=== PATIENT | female | born 1960 | race Caucasian/White ===

== ENCOUNTER 2018-04-21 15:10 | Day surgery (SDC) | payer OTHER ==
[~2018-04-21] VITALS: Ht 177.8 cm; Wt 158.8 kg
[2018-04-21 15:58] VITALS: BP 156/78
[2018-04-21] MEDS ORDERED: LACTATED RINGERS 1,000 ML IV SCH (16:23)
[2018-04-21] MEDS ORDERED: FENTANYL PF 100 MCG/2ML ONE ×2 (16:58→18:01)
[2018-04-21] MEDS ORDERED: MIDAZOLAM 1 MG/ML, 2ML ONE (16:58)
[2018-04-21] MEDS ORDERED: CIPROFLOXACIN/PMX 400MG/200ML 200 ML IVPB ONE (17:18)
[2018-04-21] MEDS ORDERED: ONDANSETRON 2MG/ML, 2ML ONE (17:18)
[2018-04-21] MEDS ORDERED: DEXAMETHASONE 4 MG/ML, 1ML ONE (17:18)
[2018-04-21] MEDS ORDERED: SUCCINYLCHOLINE 20 MG/ML, 10ML ONE (17:18)
[2018-04-21] MEDS ORDERED: PROPOFOL 10 MG/ML, 20ML ONE (17:18)
[2018-04-21] MEDS ORDERED: PROMETHAZINE 25 MG/ML, 1ML IV PRN (19:00)
[2018-04-21] MEDS ORDERED: ACETAMINOPHEN 325 MG TABLET PO PRN (19:00)
[2018-04-21] MEDS ORDERED: LABETALOL 5MG/ML, 20ML IV PRN (19:00)
[2018-04-21] MEDS ORDERED: FENTANYL PF 100 MCG/2ML IV PRN (19:00)
[2018-04-21] MEDS ORDERED: LORazepam 2 MG/ML, 1ML IVPush PRN (19:00)
[2018-04-21] MEDS ORDERED: MEPERIDINE/PF 25MG/0.5ML IVPush PRN (19:00)
[2018-04-21] MEDS ORDERED: HYDROmorphone 1 MG/ML, 1ML IV PRN (19:00)
[2018-04-21] MEDS ORDERED: hydrALAzine 20 MG/ML, 1ML IV PRN (19:00)
[2018-04-21] MEDS ORDERED: KETOROLAC 30 MG/1 ML IV ONE (19:00)
[2018-04-21] MEDS ORDERED: OXYcodone 5 MG/5 ML ORAL.SOL UDC PO PRN (19:00)
[2018-04-21] MEDS ORDERED: ALBUTEROL SULFATE 2.5 MG/3 ML NPPB PRN (19:00)
[2018-04-21] MEDS ORDERED: OMNIPAQUE 350 MG/ML, 50 ML BOTTLE ONE (19:01)
[2018-04-21] MEDS ORDERED: PLEASE ENTER ALLERGIES MC SCH (19:02)
[2018-04-21] MEDS ORDERED: OXYcodone/APAP 5/325MG TABLET ONE (21:00)
[2018-04-21] MEDS ORDERED: OXYcodone/APAP 5/325MG TABLET PO PRN (21:00)
== END 2018-04-21 22:36 | disposition home or self-care (01) ==
LOC: OR 15:10 → 4NOR 19:56 → OR 22:36
PROVIDERS: ATTEND Urology
DX: N20.0 Calculus of kidney (principal); E66.01 Morbid (severe) obesity due to excess calories; Z98.890 Other specified postprocedural states; Z68.43 Body mass index [BMI] 50.0-59.9, adult
CPT/HCPCS: 52356; 74420; C1758; C1769; C2617; J0330; J0744; J1100; J2250; J2405; J2704; J3010; J7120; Q9967; G0378

== ENCOUNTER 2019-06-23 10:22 | Day surgery (SDC) | payer OTHER ==
[~2019-06-23] VITALS: Ht 177.8 cm; Wt 147.2 kg
[2019-06-23] MEDS ORDERED: FENTANYL PF 250 MCG/5ML ONE ×2 (10:32→11:55)
[2019-06-23] MEDS ORDERED: MIDAZOLAM 1 MG/ML, 2ML ONE ×2 (10:32→11:55)
[2019-06-23] MEDS ORDERED: LACTATED RINGERS 1,000 ML IV SCH (10:44)
[2019-06-23 11:00] VITALS: BP 122/77
[2019-06-23] MEDS ORDERED: PLEASE ENTER HEIGHT AND WEIGHT MC SCH (11:00)
[2019-06-23] MEDS ORDERED: AMLO1CAP2 PO (11:11)
[2019-06-23] MEDS ORDERED: HYDR12.517 PO (11:11)
[2019-06-23] MEDS ORDERED: LABETALOL 5MG/ML, 20ML IV PRN (12:30)
[2019-06-23] MEDS ORDERED: OXYcodone 5 MG/5 ML ORAL.SOL UDC PO PRN (12:30)
[2019-06-23] MEDS ORDERED: ONDANSETRON ODT 8 MG PO PRN (12:30)
[2019-06-23] MEDS ORDERED: FENTANYL PF 100 MCG/2ML IV PRN (12:30)
[2019-06-23] MEDS ORDERED: HYDROmorphone 2 MG/ML, 1ML IVPush PRN (12:30)
[2019-06-23] MEDS ORDERED: ONDANSETRON 2MG/ML, 2ML IV PRN (12:30)
[2019-06-23] MEDS ORDERED: LORazepam 2 MG/ML, 1ML IVPush PRN (12:30)
[2019-06-23] MEDS ORDERED: hydrALAzine 20 MG/ML, 1ML IV PRN (12:30)
[2019-06-23] MEDS ORDERED: ACETAMINOPHEN 325 MG TABLET PO PRN (12:30)
[2019-06-23] MEDS ORDERED: PROMETHAZINE 25 MG/ML, 1ML IV PRN (12:30)
[2019-06-23] MEDS ORDERED: PROMETHAZINE 25 MG SUPP PR PRN (12:30)
[2019-06-23] MEDS ORDERED: LIDOCAINE 4%, 4 ML SYR/CANN TP ONE (12:56)
[2019-06-23] MEDS ORDERED: LIDOCAINE-MPF 2% ,5ML ONE (12:56)
[2019-06-23] MEDS ORDERED: FENTANYL PF 100 MCG/2ML ONE (14:09)
[2019-06-23] MEDS ORDERED: GLYCOPYRROLATE 0.2MG/1ML, 5ML ONE (14:24)
[2019-06-23] MEDS ORDERED: ROCURONIUM 10MG/ML,5ML ONE (14:24)
[2019-06-23] MEDS ORDERED: DEXAMETHASONE 4 MG/ML, 1ML ONE (14:24)
[2019-06-23] MEDS ORDERED: NEOSTIGMINE 1 MG/ML, 10ML ONE (14:24)
[2019-06-23] MEDS ORDERED: ONDANSETRON 2MG/ML, 2ML ONE (14:24)
[2019-06-23] MEDS ORDERED: CEFAZOLIN 1,000 MG ONE (14:24)
[2019-06-23] MEDS ORDERED: SUCCINYLCHOLINE 20 MG/ML, 10ML ONE (14:24)
[2019-06-23] MEDS ORDERED: PROPOFOL 10 MG/ML, 20ML ONE (14:24)
[2019-06-23] MEDS ORDERED: PROMETHAZINE 25 MG/ML, 1ML ONE (15:19)
== END 2019-06-23 18:00 | disposition home or self-care (01) ==
LOC: OUT 10:22
PROVIDERS: ATTEND Urology
DX: N20.0 Calculus of kidney (principal); N20.1 Calculus of ureter; E66.01 Morbid (severe) obesity due to excess calories; Z68.42 Body mass index [BMI] 45.0-49.9, adult
CPT/HCPCS: 52325; 52332; 74018; 76000; 93005; C1758; C2617; J0330; J0690; J1100; J2250; J2405; J2550; J2704; J2710; J3010